=== PATIENT | female | born 1935 | race Caucasian/White ===

== ENCOUNTER 2017-02-20 19:27 | Emergency (ER) | payer BC, MEDICARE ==
[2017-02-20 19:35] VITALS: TEMP 97
[2017-02-20] MEDS ORDERED: SODIUM CHLORIDE 0.9% 1,000 ML IV STA (19:46)
[2017-02-20] MEDS ORDERED: SODIUM CHLORIDE 0.9% 500 ML IV STA ×2 (19:46→21:15)
--- NOTE | 2017-02-20 19:49 | ED ---
Recheck HPI - General Chief Complaint: Recheck/Abnormal Lab/Rx Stated Complaint: BP issues Time Seen by Provider: 02/20/17 19:38 Source: patient, family, RN notes reviewed Mode of arrival: ambulatory Limitations: no limitations - History of Present Illness Initial Comments: This is an 81-year-old female history of hypertension was is here for evaluation for hypertension she states she was at home and her blood pressure 247/120 she denies any fevers chills nausea vomiting sweats chest pain shortness breath or other symptoms she did take extra dose or medication which she got here she felt somewhat shaky also since arrival she developed a rash she states she gets rashes all the time. MD Complaint: other - Related Data Home Medications Medication Instructions Recorded Confirmed Fluticasone Nasal [place] [Flonase 1 spr EA NOSTRIL DAILY PRN 02/20/17 02/20/17 Nasal [place]] Hydrocortisone Valerate 1 applic TOPICAL DAILY PRN 02/20/17 02/20/17 Hyzaar (Unknown Dose) 1 tab PO DAILY 02/20/17 02/20/17 Januvia (Unknown Dose) 1 tab PO DAILY 02/20/17 02/20/17 Lipitor (Unknown Dose) 1 tab PO DAILY 02/20/17 02/20/17 Multivit-Min/FA/Lycopene/Lut 1 tab PO DAILY 02/20/17 02/20/17 [Centrum Silver Tablet] Vit C/E/Zn/Coppr/Lutein/Zeaxan 1 cap PO BID 02/20/17 02/20/17 [Preservision Areds 2 Softgel] Previous Rx's Medication Instructions Recorded amLODIPine BES/OLMESARTAN MED 1 tab PO DAILY #30 tab 02/20/17 [Pam 5-20 mg Tablet] Allergies Allergy/AdvReac Type Severity Reaction Status Date / Time No Known Allergies Allergy Verified 02/20/17 19:55 Review of Systems ROS Statement: Those systems with pertinent positive or pertinent negative responses have been documented in the HPI. ROS Other: All systems not noted in ROS Statement are negative. Past Medical History Past Medical History: Hypertension History of Any Multi-Drug Resistant Organisms: None Reported Past Surgical History: Appendectomy, Hysterectomy Past Psychological History: No Psychological Hx Reported Smoking Status: Never smoker Past Alcohol Use History: None Reported Past Drug Use History: None Reported General Exam - General Exam Comments Initial Comments: This is a well-developed well-nourished awake alert oriented 3 female Limitations: no limitations General appearance: alert, in no apparent distress Head exam: Present: atraumatic, normocephalic, normal inspection Eye exam: Present: normal appearance, PERRL, EOMI. Absent: scleral icterus, conjunctival injection, periorbital swelling ENT exam: Present: normal exam, mucous membranes moist Neck exam: Present: normal inspection. Absent: tenderness, meningismus, lymphadenopathy Respiratory exam: Present: normal lung sounds bilaterally. Absent: respiratory distress, wheezes, rales, rhonchi, stridor Cardiovascular Exam: Present: normal rhythm, tachycardia, normal heart sounds. Absent: systolic murmur, diastolic murmur, rubs, gallop, clicks GI/Abdominal exam: Present: soft, normal bowel sounds. Absent: distended, tenderness, guarding, rebound, rigid Extremities exam: Present: normal inspection, full ROM, normal capillary refill. Absent: tenderness, pedal edema, joint swelling, calf tenderness Back exam: Present: normal inspection Neurological exam: Present: alert, oriented X3, CN II-XII intact Psychiatric exam: Present: normal affect, normal mood Skin exam: Present: warm, dry, intact, erythema, other (Erythematous rash noted over the chest wall and extremities). Absent: rash Course Vital Signs 02/20/17 02/20/17 02/20/17 19:30 19:54 21:00 Temperature 97 F L Pulse Rate 116 H 103 H 95 Respiratory 20 16 16 Rate Blood Pressure 220/104 203/98 O2 Sat by Pulse 98 99 98 Oximetry 02/20/17 02/20/17 02/20/17 21:55 22:36 23:19 Temperature Pulse Rate 92 98 110 H Respiratory 16 16 16 Rate Blood Pressure 209/91 243/112 170/70 O2 Sat by Pulse 98 98 98 Oximetry Medical Decision Making - Medical Decision Making The patient remains asymptomatic she will be discharged I will refill her prescription she is a follow-up with her doctor in 2 days or return when necessary also increase oral fluids - Lab Data Result diagrams: 02/20/17 19:50 02/20/17 19:50 Lab Results 02/20/17 02/20/17 02/20/17 Range/Units 19:50 19:50 19:50 WBC 6.7 (3.8-10.6) k/uL RBC 5.36 (3.80-5.40) m/uL Hgb 12.7 (11.4-16.0) gm/dL Hct 41.8 (34.0-46.0) % MCV 78.0 L (80.0-100.0) fL MCH 23.6 L (25.0-35.0) pg MCHC 30.3 L (31.0-37.0) g/dL RDW 16.4 H (11.5-15.5) % Plt Count 295 (150-450) k/uL Neutrophils % 49 % Lymphocytes % 37 % Monocytes % 5 % Eosinophils % 4 % Basophils % 1 % Neutrophils # 3.3 (1.3-7.7) k/uL Lymphocytes # 2.5 (1.0-4.8) k/uL Monocytes # 0.4 (0-1.0) k/uL Eosinophils # 0.3 (0-0.7) k/uL Basophils # 0.1 (0-0.2) k/uL Hypochromasia Marked Anisocytosis Slight Microcytosis Slight Sodium 138 (137-145) mmol/L Potassium 3.9 (3.5-5.1) mmol/L Chloride 100 (98-107) mmol/L Carbon Dioxide 24 (22-30) mmol/L Anion Gap 14 mmol/L BUN 17 (7-17) mg/dL Creatinine 0.61 (0.52-1.04) mg/dL Est GFR (MDRD) Af Amer >60 (>60 ml/min/1.73 sqM) Est GFR (MDRD) Non-Af >60 (>60 ml/min/1.73 sqM) Glucose 200 H (74-99) mg/dL Calcium 9.5 (8.4-10.2) mg/dL Magnesium 1.8 (1.6-2.3) mg/dL Total Bilirubin 0.5 (0.2-1.3) mg/dL AST 26 (14-36) U/L ALT 18 (9-52) U/L Alkaline Phosphatase 106 (38-126) U/L Total Creatine Kinase 45 (30-135) U/L CK-MB (CK-2) 1.3 (0.0-2.4) ng/mL CK-MB (CK-2) Rel Index 2.9 Total Protein 8.1 (6.3-8.2) g/dL Albumin 4.3 (3.5-5.0) g/dL Urine Color Urine Appearance (Clear) Urine pH (5.0-8.0) Ur Specific [place] (1.001-1.035) Urine Protein (Negative) Urine Glucose (UA) (Negative) Urine Ketones (Negative) Urine Blood (Negative) Urine Nitrite (Negative) Urine Bilirubin (Negative) Urine Urobilinogen (<2.0) mg/dL Ur Leukocyte Esterase (Negative) 02/20/17 Range/Units 20:45 WBC (3.8-10.6) k/uL RBC (3.80-5.40) m/uL Hgb (11.4-16.0) gm/dL Hct (34.0-46.0) % MCV (80.0-100.0) fL MCH (25.0-35.0) pg MCHC (31.0-37.0) g/dL RDW (11.5-15.5) % Plt Count (150-450) k/uL Neutrophils % % Lymphocytes % % Monocytes % % Eosinophils % % Basophils % % Neutrophils # (1.3-7.7) k/uL Lymphocytes # (1.0-4.8) k/uL Monocytes # (0-1.0) k/uL Eosinophils # (0-0.7) k/uL Basophils # (0-0.2) k/uL Hypochromasia Anisocytosis Microcytosis Sodium (137-145) mmol/L Potassium (3.5-5.1) mmol/L Chloride (98-107) mmol/L Carbon Dioxide (22-30) mmol/L Anion Gap mmol/L BUN (7-17) mg/dL Creatinine (0.52-1.04) mg/dL Est GFR (MDRD) Af Amer (>60 ml/min/1.73 sqM) Est GFR (MDRD) Non-Af (>60 ml/min/1.73 sqM) Glucose (74-99) mg/dL Calcium (8.4-10.2) mg/dL Magnesium (1.6-2.3) mg/dL Total Bilirubin (0.2-1.3) mg/dL AST (14-36) U/L ALT (9-52) U/L Alkaline Phosphatase (38-126) U/L Total Creatine Kinase (30-135) U/L CK-MB (CK-2) (0.0-2.4) ng/mL CK-MB (CK-2) Rel Index Total Protein (6.3-8.2) g/dL Albumin (3.5-5.0) g/dL Urine Color Colorless Urine Appearance Clear (Clear) Urine pH 7.0 (5.0-8.0) Ur Specific [place] 1.002 (1.001-1.035) Urine Protein Negative (Negative) Urine Glucose (UA) 1+ H (Negative) Urine Ketones Negative (Negative) Urine Blood Negative (Negative) Urine Nitrite Negative (Negative) Urine Bilirubin Negative (Negative) Urine Urobilinogen <2.0 (<2.0) mg/dL Ur Leukocyte Esterase Negative (Negative) - EKG Data -: EKG Interpreted by [place] EKG shows normal: sinus rhythm Rate: tachycardia (Sinus tachycardia rate 114 CA interval 162 QRS duration 86 daily since QTC of 356/490 moderate voltage criteria for LVH no acute ST-T wave changes) - Radiology Data Radiology results: report reviewed (Review the x-ray report no acute findings.) , image reviewed Disposition Clinical Impression: Hypertensive urgency, Dehydration, Encounter for medication refill Disposition: HOME SELF-CARE Condition: Good Instructions: Hypertension (ED), Dehydration (ED) Prescriptions: amLODIPine BES/OLMESARTAN MED [Pam 5-20 mg Tablet] 1 tab PO DAILY #30 tab
[2017-02-20 19:58] VITALS: RESP 16
[2017-02-20 20:05] LABS: Anisocytosis Slight; Basophils # (A) 0.1 k/uL (0-0.2); Basophils % (A) 1 %; CH 23.2; CHCM 29.8; Eosinophils # (A) 0.3 k/uL (0-0.7); Eosinophils % (A) 4 %; HCT 41.8 % (34.0-46.0); HGB 12.7 gm/dL (11.4-16.0); Hypochromasia Marked; Luc # (Auto) 0.26; Luc % (Auto) 4; Lymphocytes # (A) 2.5 k/uL (1.0-4.8); Lymphocytes % (A) 37 %; MCH 23.6 pg (25.0-35.0); MCHC 30.3 g/dL (31.0-37.0); Mean Platelet Volume 7.6; Microcytosis Slight; Monocytes # (A) 0.4 k/uL (0-1.0); Monocytes % (A) 5 %; Neutrophils # (A) 3.3 k/uL (1.3-7.7); Neutrophils % (A) 49 %; RBC 5.36 m/uL (3.80-5.40); RDW 16.4 % (11.5-15.5); WBC 6.7 k/uL (3.8-10.6)
[2017-02-20 20:12] LABS: ALT 18 U/L (9-52); AST 26 U/L (14-36); Alkaline Phosphatase 106 U/L (38-126); Blood Urea Nitrogen 17 mg/dL (7-17); Calcium 9.5 mg/dL (8.4-10.2); Carbon Dioxide 24 mmol/L (22-30); Glucose 200 mg/dL (74-99); Magnesium 1.8 mg/dL (1.6-2.3); Non-African American GFR(MDRD) >60 (>60 ml/min/1.73 sqM); Sodium 138 mmol/L (137-145); Total Bilirubin 0.5 mg/dL (0.2-1.3); Total Protein 8.1 g/dL (6.3-8.2)
[2017-02-20 20:23] LABS: Anion Gap 14 mmol/L; Chloride 100 mmol/L (98-107)
[2017-02-20 20:24] LABS: Potassium 3.9 mmol/L (3.5-5.1)
[2017-02-20 20:25] LABS: Creatine Kinase MB 1.3 ng/mL (0.0-2.4)
[2017-02-20 21:09] LABS: Appearance,Urine Clear (Clear); Bilirubin,Urine Negative (Negative); Glucose,Urine (UA) 1+ (Negative); Ketones,Urine Negative (Negative); Leukocyte Esterase,Urine Negative (Negative); Nitrite,Urine Negative (Negative); Protein,Urine Negative (Negative); Specific Gravity,Urine 1.002 (1.001-1.035); UA Billing (MACRO vs. MICRO) CHEM; Urobilinogen,Urine <2.0 mg/dL (<2.0)
--- NOTE | 2017-02-20 22:20 | XR ---
EXAM: XR Chest, 2 Views. CLINICAL HISTORY: Reason: cough TECHNIQUE: Frontal and lateral views of the chest. COMPARISON: No relevant prior studies available. FINDINGS: Lungs: The lungs are free of focal infiltrate. Pleural space: Minimal symmetric biapical pleuroparenchymal thickening. No pleural effusion or pneumothorax. Heart: Heart size is within normal limits. Mediastinum: Moderate size hiatal hernia. Bones/joints: Osteopenia and multilevel degenerative changes, accompanied by minor retrolisthesis at the thoracolumbar junction. Vasculature: Aortic vascular calcification throughout. IMPRESSION: No acute intrathoracic abnormality or source of the patient's cough detected, as above.
[2017-02-20] MEDS ORDERED: hydrALAZINE HCL 20 MG/ML 1 ML VIAL IVP STA (22:47)
[2017-02-20 23:21] VITALS: BP 170/70; PULSE 110
== END 2017-02-20 23:34 | disposition home or self-care (01) ==
LOC: EC 19:27
DX: I16.0 Hypertensive urgency (principal); I10 Essential (primary) hypertension; E86.0 Dehydration; Z76.0 Encounter for issue of repeat prescription; R21 Rash and other nonspecific skin eruption; Z79.899 Other long term (current) drug therapy; Z79.84 Long term (current) use of oral hypoglycemic drugs; Z79.51 Long term (current) use of inhaled steroids
CPT/HCPCS: 36415; 93005; 80053; 82550; 82553; 83735; 85025; 81003; 71020; 96374; 96361; 99284; J0360

== ENCOUNTER → 2018-08-03 | Outpatient (CLI) | payer MEDICARE ==
--- NOTE | 2018-08-04 07:23 | BD ---
EXAMINATION TYPE: Axial Bone Density DATE OF EXAM: 08/03/2018 COMPARISON: NONE CLINICAL HISTORY: Height: 5 FT Weight: 159 FRAX RISK QUESTIONS: Secondary Osteoporosis: Rheumatoid Arthritis: YES RISK FACTORS HISTORY OF: Family History of Osteoporosis: YES Postmenopausal woman: TOTAL HYST AGE 49 GABRIEL Take estrogen and/or progesterone medications: TOOK HORMONES AFTER HYST NOT SURE HOW LONG Lost more than 2 inches in height since high school: YES MEDICATIONS: Additional Medications: AMLODIPINE / OLMESARTAN, JANUVIA, SIMVASTATIN Additional History: EXAM MEASUREMENTS: Bone mineral densitometry was performed using the [employer] System. Bone mineral density as measured about the Lumbar spine is: ----- L1-L4(G/cm2): 1.233 T Score Values are as follows: ----- L2: 0.1 ----- L3: 0.6 ----- L4: 0.6 ----- L1-L4: 0.4 Bone mineral density has: INCREASED 10.8 % since study of: 2008 Bone mineral density about the R hip (g/cm2): 0.759 Bone mineral density about the L hip (g/cm2): 0.775 T Score values are as follows: -----R Neck: -2.0 -----L Neck: -1.9 -----R Total: -0.8 -----L Total: -0.7 Bone mineral density has: DECREASED 4.4 % since study of: 2008 IMPRESSION: Osteopenia (T Score between -2.5 and -1) at femoral neck level in both hips. There is slightly increased risk of fracture and the patient may be considered for treatment. Re-Screen 2-5 years. NOTE: T-SCORE=SD OF THE YOUNG ADULT MEAN.
== END | disposition home or self-care (01) ==
LOC: RADBDWWP 14:01
PROVIDERS: ATTEND Family Medicine
DX: M81.0 Age-related osteoporosis without current pathological fracture (principal); Z78.0 Asymptomatic menopausal state
CPT/HCPCS: 77080

== ENCOUNTER → 2019-11-29 | Outpatient (CLI) | payer MEDICARE ==
--- NOTE | 2019-11-29 20:19 | MR ---
EXAMINATION TYPE: MR angio head wo con DATE OF EXAM: 11/29/2019 COMPARISON: 01/12/2015 HISTORY: 83-year-old female third nerve palsy TECHNIQUE: High-resolution 3-D [id number] imaging of the [place]. Rotational 3-D reconst ructions generated on a dedicated independent workstation. 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 The right vertebral artery may terminat e as a PICA branch. Redemonstrated moderate focal narrowing along the distal third basilar artery, unchanged from 2014. The internal carotid arteries and remainder of the anterior circulation are patent without significan t stenosis. The remainder of the posterior circulation is patent. Nonaneurysmal changes seen. Incidental, known 1.1 cm colloid cyst anterior aspect of the third ventricle. No hydrocephalus. IMPRESSION: 1. 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 2. 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 3. No aneurysmal change seen. 4. Known 1.1 cm colloid cyst.
--- NOTE | 2019-11-29 20:37 | MR ---
EXAMINATION TYPE: MR orbits wo/w con DATE OF EXAM: 11/29/2019 COMPARISON: Correlation MRI brain 01/12/2015 HISTORY: 83-year-old female third nerve palsy Technique: Multiplanar, multisequence images of the orbits were obtained before and after administrat ion of 7 mL intravenous Gadavist gadolinium contrast. FINDINGS: Midline sagittal images redemonstrate the known 1.1 cm T1 bright and T2 dark colloid cyst anterior th ird ventricle. No hydrocephalus. The craniocervical junction is normal. T2 sequence suggests some patchy right white matter change within the bilateral paramedian mary that could relate to areas of old lacunar infarcts. Some moderate patchy subcortical and periventricular d eep white matter change is also present but only partially visualized on the present exam. The optic nerves are symmetrical bilaterally. There is no enlargement of extraocular muscles of the orbits. Retrobulbar intra or extraconal mass is not seen. Previous bilateral cataract surgery. Preseptal or post septal orbital abnormality is not detected. Sella and cavernous sinuses appear normal. Scattered trace mucosal thickening ethmoid air cells and maxillary sinuses. Post contrast images demonstrate no evidence of pathologic enhancement in the orbit or visualized int racranial cavity. IMPRESSION: 1. Known 1.1 cm colloid cyst. No hydrocephalus. 2. No specific abnormality on MRI of the orbits. 3. Moderate patchy changes of chronic small vessel ischemic disease, not well characterized on the pr esent, tailored exam.
== END | disposition home or self-care (01) ==
LOC: RADMRIMAIN 13:04
PROVIDERS: ATTEND Ophthalmology
DX: I65.1 Occlusion and stenosis of basilar artery (principal); Q27.8 Other specified congenital malformations of peripheral vascular system; G93.0 Cerebral cysts
CPT/HCPCS: 70543; 70544

== ENCOUNTER → 2019-12-08 | Outpatient (CLI) | payer MEDICARE ==
--- NOTE | 2019-12-09 11:05 | US ---
EXAMINATION TYPE: US carotid duplex BILAT DATE OF EXAM: 12/08/2019 COMPARISON: NONE CLINICAL HISTORY: R01.1 Murmur, H49.02 Third [oculomotor] nerve pals. EXAM MEASUREMENTS: RIGHT: Peak Systolic Velocity (PSV) cm/sec ----- Right CCA: 80.0 ----- Right ICA: 110.7 ----- Right ECA: 111.3 ICA/CCA ratio: 1.4 RIGHT: End Diastole cm/sec ----- Right CCA: 20.3 ----- Right ICA: 18.1 ----- Right ECA: 30.5 LEFT: Peak Systolic Velocity (PSV) cm/sec ----- Left CCA: 79.7 ----- Left ICA: 91.2 ----- Left ECA: 102.5 ICA/CCA ratio: 1.1 LEFT: End Diastole cm/sec ----- Left CCA: 16.7 ----- Left ICA: 21.2 ----- Left ECA: 16.1 VERTEBRALS (direction of flow): Right Vertebral: Antegrade Left Vertebral: Antegrade Rhythm: Normal Technically difficult study, high bifurcation and calcified vessels. No significant velocity elevati ons. Grayscale, color Doppler, spectral Doppler imaging performed of the carotid arteries. Waveform analys is does not show significant stenosis of the proximal internal carotid arteries. IMPRESSION: No hemodynamic significant stenosis of the proximal internal carotid arteries by Doppler criteria, an indirect measurement of carotid stenosis, additional findings above
--- NOTE | 2019-12-10 16:26 | ECHOF ---
Referral Reason:R01.1 Murmur, H49.02 Third [oculomotor] nerve pals MEASUREMENTS -------- HEIGHT: 152.4 cm WEIGHT: 72.6 kg BP: IVSd: 1.4 cm (0.6 - 1.1) LVIDd: 3.8 cm (3.9 - 5.3) LVPWd: 1.0 cm (0.6 - 1.1) IVSs: 1.5 cm LVIDs: 2.5 cm LVPWs: 1.4 cm LA Diam: 4.3 cm (2.7 - 3.8) LAESV Index (A-L): 34.26 ml/m Ao Diam: 2.7 cm (2.0 - 3.7) AV Cusp: 1.4 cm (1.5 - 2.6) LA Diam: 3.5 cm (2.7 - 3.8) MV EXCURSION: 13.991 mm (> 18.000) MV EF SLOPE: 60 mm/s (70 - 150) EPSS: 1.0 cm MV E Joss: 0.49 m/s MV DecT: 199 ms MV A Joss: 0.90 m/s MV E/A Ratio: 0.55 RAP: 5.00 mmHg RVSP: 25.68 mmHg FINDINGS -------- Sinus rhythm. This was a technically adequate study. The left ventricular size is normal. There is moderate concentric left ventricular hypertrophy. O verall left ventricular systolic function is normal with, an EF between 55 - 60 %. The right ventricle is normal in size. The left atrium is moderately dilated. LA is moderately dilated 34-39 ml/m2 The right atrial size is normal. There is mild aortic valve sclerosis. There is no evidence of aortic regurgitation. The mitral valve leaflets are mildly thickened. Mild mitral annular calcification present. Mild m itral regurgitation is present. Mild tricuspid regurgitation present. Right ventricular systolic pressure is normal at < 35 mmHg. There is no evidence of pulmonary hypertension. The aortic root size is normal. There is no pericardial effusion. CONCLUSIONS -------- 1. Sinus rhythm. 2. This was a technically adequate study. 3. The left ventricular size is normal. 4. There is moderate concentric left ventricular hypertrophy. 5. Overall left ventricular systolic function is normal with, an EF between 55 - 60 %. 6. The right ventricle is normal in size. 7. The left atrium is moderately dilated. 8. LA is moderately dilated 34-39 ml/m2 9. The right atrial size is normal. 10. There is mild aortic valve sclerosis. 11. The mitral valve leaflets are mildly thickened. 12. Mild mitral annular calcification present. 13. Mild mitral regurgitation is present. 14. Mild tricuspid regurgitation present. 15. Right ventricular systolic pressure is normal at < 35 mmHg. 16. There is no evidence of pulmonary hypertension. 17. The aortic root size is normal. 18. There is no pericardial effusion. ENTERTAINMENT AGENT: Yasmine Varner RDCS
== END | disposition home or self-care (01) ==
LOC: RADECHMAIN 16:15
PROVIDERS: ATTEND Family Medicine
DX: I08.1 Rheumatic disorders of both mitral and tricuspid valves (principal); H49.02 Third [oculomotor] nerve palsy, left eye; R01.1 Cardiac murmur, unspecified
CPT/HCPCS: 93306; 93880

== ENCOUNTER 2021-10-13 15:37 | Emergency (ER) | payer MEDICARE ==
[2021-10-13 16:20] VITALS: RESP 18; TEMP 98
[2021-10-13] MEDS ORDERED: ONDANSETRON 4 MG/2 ML VIAL IVP STA (16:41)
--- NOTE | 2021-10-13 16:44 | ED ---
Fall HPI - General Chief Complaint: Fall Stated Complaint: Fall Time Seen by Provider: 10/13/21 16:25 Source: patient, EMS Mode of arrival: EMS - History of Present Illness Initial Comments: 85-year-old female has administered diabetes, hypertension presents emergency Department after she sustained a fall. She was putting something underneath the stove at approximately 1 PM this afternoon when she states she lost her balance and fell backwards. She hit her head on the cabinet. She denies loss of consciousness. States that she frequently loses her balance and needs her son to ambulate on any blood thinners. Denies headache or visual changes. Admits to feeling nauseated without vomiting. She fell and was unable to get up off the ground. She had a Crohn the floor to get to the phone and called her son who arrived at the house around 3 PM. No neck pain but is in a c-collar. She denies chest pain or shortness of breath. Admits to long-standing low back pain however nothing new. No numbness, tingling or weakness in her extremities. No other alleviating, precipitating or modifying factors - Related Data Home Medications Medication Instructions Recorded Confirmed Fluticasone Nasal [place] [Flonase 1 spr EA NOSTRIL DAILY PRN 02/20/17 02/20/17 Nasal [place]] Hydrocortisone Valerate 1 applic TOPICAL DAILY PRN 02/20/17 02/20/17 [Hydrocortisone Valerate 2%] Hyzaar (Unknown Dose) 1 tab PO DAILY 02/20/17 02/20/17 Januvia (Unknown Dose) 1 tab PO DAILY 02/20/17 02/20/17 Lipitor (Unknown Dose) 1 tab PO DAILY 02/20/17 02/20/17 Multivit-Min/FA/Lycopen/Lutein 1 tab PO DAILY 02/20/17 02/20/17 [Centrum Silver Tablet] Vit C/E/Zn/Coppr/Lutein/Zeaxan 1 cap PO BID 02/20/17 02/20/17 [Preservision Areds 2 Softgel] Previous Rx's Medication Instructions Recorded amLODIPine BES/OLMESARTAN MED 1 tab PO DAILY #30 tab 02/20/17 [Pam 5-20 mg Tablet] Allergies Allergy/AdvReac Type Severity Reaction Status Date / Time No Known Allergies Allergy Verified 10/13/21 16:16 Review of Systems ROS Statement: Those systems with pertinent positive or pertinent negative responses have been documented in the HPI. ROS Other: All systems not noted in ROS Statement are negative. Past Medical History Past Medical History: Diabetes Mellitus, Hyperlipidemia, Hypertension History of Any Multi-Drug Resistant Organisms: None Reported Past Surgical History: Appendectomy, Hysterectomy Past Psychological History: No Psychological Hx Reported Smoking Status: Never smoker Past Alcohol Use History: None Reported Past Drug Use History: None Reported General Exam Limitations: no limitations General appearance: alert, in no apparent distress Head exam: Present: atraumatic, normocephalic, normal inspection Eye exam: Present: normal appearance, PERRL, EOMI. Absent: scleral icterus, conjunctival injection, periorbital swelling ENT exam: Present: normal exam, mucous membranes moist Neck exam: Present: normal inspection, other (c-collar in place). Absent: tenderness, meningismus, lymphadenopathy Respiratory exam: Present: normal lung sounds bilaterally. Absent: respiratory distress, wheezes, rales, rhonchi, stridor Cardiovascular Exam: Present: regular rate, normal rhythm, normal heart sounds. Absent: systolic murmur, diastolic murmur, rubs, gallop, clicks GI/Abdominal exam: Present: soft, normal bowel sounds. Absent: distended, tenderness, guarding, rebound, rigid Extremities exam: Present: normal inspection, full ROM, normal capillary refill. Absent: tenderness, pedal edema, joint swelling, calf tenderness Back exam: Present: normal inspection Neurological exam: Present: alert, oriented X3, CN II-XII intact Psychiatric exam: Present: normal affect, normal mood Skin exam: Present: warm, dry, intact, normal color. Absent: rash Course Vital Signs 10/13/21 10/13/21 16:17 17:40 Temperature 98 F Pulse Rate 106 H 109 H Respiratory 18 18 Rate Blood Pressure 180/92 170/73 O2 Sat by Pulse 97 97 Oximetry Medical Decision Making - Medical Decision Making Upon arrival patient was placed into room 26. A thorough history and physical exam was performed. Patient is in a c-collar. She is sent over for a CT of her head and cervical spine. I also performed a chest x-ray and a pelvic x-ray. CT of brain demonstrates spondylitic changes without fracture. Mild cerebral atrophy without acute intracranial abnormality. Patient does have a known colloid cyst. Chest x-ray demonstrates no acute cardiopulmonary process. Pelvic x-ray demonstrates no acute findings. Patient is able to get up and ambulate to the bathroom without difficulty. Patient will be discharged home at this time. Son is at bedside and feels comfortable with this plan. Follow-up with your primary care in 2-4 days. Return to the emergency department for any new or worsening symptoms Disposition Clinical Impression: Fall, Concussion Disposition: HOME SELF-CARE Condition: Stable Instructions (If sedation given, give patient instructions): Fall Prevention (ED) Additional Instructions: Please follow-up with your primary care doctor in 2-4 days. Return to the emergency department for any new or worsening symptoms Is patient prescribed a controlled substance at d/c from ED?: No Referrals: Ruthy Hines MD [Primary Care Provider] - 1-2 days Time of Disposition: 19:20
--- NOTE | 2021-10-13 17:30 | CT ---
EXAMINATION TYPE: CT brain [place] wo con DATE OF EXAM: 10/13/2021 COMPARISON: CT brain 12/06/2014 HISTORY: Fall with injury. CT DLP: 1522.1 mGycm Automated exposure control for dose reduction was used. There is mild cerebral atrophy. There is no mass effect nor midline shift. There is no sign of intrac ranial hemorrhage. There is 12 mm rounded high attenuation focus in the anterior aspect of the third ventricle related to colloid cyst. There is no hydrocephalus. The cervical vertebra have normal alignment. There is degenerative mild disc space narrowing at C6-7. There is spurring of the endplates. Facet joints are intact. There is hypertrophic multilevel facet arthropathy. Skull base is intact. There is normal aeration of the mastoid sinuses. IMPRESSION: Spondylotic changes in the cervical spine. No fracture. Mild cerebral atrophy. No acute intracranial abnormality. Colloid cyst noted without change compared to old exam.
[2021-10-13 17:41] VITALS: BP 170/73; PULSE 109
--- NOTE | 2021-10-13 18:08 | XR ---
EXAMINATION TYPE: XR chest 2V DATE OF EXAM: 10/13/2021 COMPARISON: NONE HISTORY: Cough TECHNIQUE: 2 views FINDINGS: There is large hiatal hernia. There is no heart failure nor confluent pneumonic infiltrate. Costophrenic angles are clear. Bony thorax is intact. Heart size is normal. IMPRESSION: No active cardiopulmonary disease. No change.
--- NOTE | 2021-10-13 18:09 | XR ---
EXAMINATION TYPE: XR pelvis AP view DATE OF EXAM: 10/13/2021 COMPARISON: NONE HISTORY: Pain TECHNIQUE: Single view FINDINGS: Pelvic ring appears intact. Proximal femurs are intact. There is mild acetabular spurring. Sacroiliac joints are intact. IMPRESSION: Negative exam. No fracture.
== END 2021-10-13 19:44 | disposition home or self-care (01) ==
LOC: EC 15:37
DX: S06.0X0A Concussion without loss of consciousness, initial encounter (principal); E11.9 Type 2 diabetes mellitus without complications; I10 Essential (primary) hypertension; E78.5 Hyperlipidemia, unspecified; R40.2362 Coma scale, best motor response, obeys commands, at arrival to emergency department; R40.2142 Coma scale, eyes open, spontaneous, at arrival to emergency department; R40.2252 Coma scale, best verbal response, oriented, at arrival to emergency department; Z79.84 Long term (current) use of oral hypoglycemic drugs; Z79.899 Other long term (current) drug therapy; W18.09XA Striking against other object with subsequent fall, initial encounter
CPT/HCPCS: 72170; 71046; 72125; 70450; 99284; 96374; J2405